=== PATIENT | female | born 1955 | race Caucasian/White ===

== ENCOUNTER 2017-09-30 16:06 | Emergency (ER) | payer SELFPAY ==
[2017-09-30 17:10] VITALS: BP 128/79
--- NOTE | 2017-09-30 23:18 | Emergency Department Report ---
- General Chief Complaint: Upper Respiratory Infection Stated Complaint: NAUSEA,ANGULO,DIARRHEA,CP Time Seen by Provider: 09/30/17 22:30 Source: patient Mode of arrival: Ambulatory Limitations: No Limitations - History of Present Illness Initial Comments: Patient is a 62-year-old female cough nausea vomiting diarrhea body aches 1 week patient has been taking TheraFlu and ibuprofen at home with minimal relief in symptoms symptoms include sinus pressure and sinus headache cough postnasal drip sore throat with nausea vomiting diarrhea intermittent cough worse at night cough with intermittent chest pain with cough only there is no shortness of breath no dizziness no sob, no wheezing, pt has no hx of htn, cad, or asthma MD Complaint: cough, sore throat, rhinorrhea, nasal congestion, sinus pain Onset/Timin -: week(s) Severity: moderate Severity scale (0 -10): 4 Quality: sharp, aching Consistency: intermittent Improves With: NSAID, cough suppressant Worsens With: activity, other (lying down ) Context: sick contacts Associated Symptoms: fever, chills, rhinorrhea, nasal congestion, sore throat, cough, chest pain (chest wall pain right side ), nausea, vomiting, diarrhea, ear pain. denies: dysuria, rash, confusion, right sweats, weight loss, epistaxis, hoarseness Treatments Prior to Arrival: none, Ibuprofen, "cold medicine" - Related Data Previous Rx's Medication Instructions Recorded Last Taken Type Acetaminophen 500 mg PO 1000 PRN #30 tablet 09/30/17 Unknown Rx Amoxicillin/Potassium Clav 1 each PO BID #20 tablet 09/30/17 Unknown Rx [Augmentin 875-125 Tablet] Fluticasone [Flonase] 1 spray NS QDAY #1 bottle 09/30/17 Unknown Rx Guaifenesin/Pseudoephedrne HCl 1 each PO BID PRN #20 tab.er.12h 09/30/17 Unknown Rx [Mucinex D ER 600-60 mg Tablet] Ondansetron [Zofran Odt] 4 mg PO TID PRN #12 tab.rapdis 09/30/17 Unknown Rx Allergies Allergy/AdvReac Type Severity Reaction Status Date / Time No Known Allergies Allergy Unverified 09/30/17 17:06 ED Review of Systems ROS: Stated complaint: NAUSEA,ANGULO,DIARRHEA,CP Other details as noted in HPI Constitutional: chills, fever ENT: ear pain, throat pain, congestion Respiratory: cough. denies: orthopnea, shortness of breath, wheezing Cardiovascular: chest pain (chest wall pain ). denies: palpitations, dyspnea on exertion, orthopnea, edema, syncope, paroxysmal nocturnal dyspnea Endocrine: no symptoms reported Genitourinary: denies: urgency, dysuria, frequency, hematuria, discharge, abnormal menses, dyspareunia Musculoskeletal: denies: back pain, joint swelling, arthralgia, myalgia Skin: denies: rash, lesions Neurological: headache (frontal sinus headache ). denies: numbness, paresthesias, confusion, abnormal gait, vertigo Psychiatric: denies: anxiety, depression Hematological/Lymphatic: denies: easy bleeding, easy bruising ED Past Medical Hx - Past Medical History Previous Medical History?: No - Surgical History Past Surgical History?: No - Social History Smoking Status: Current Every Day Smoker Substance Use Type: None - Medications Home Medications: Home Medications Medication Instructions Recorded Confirmed Last Taken Type Acetaminophen 500 mg PO 1000 PRN #30 tablet 09/30/17 Unknown Rx Amoxicillin/Potassium Clav 1 each PO BID #20 tablet 09/30/17 Unknown Rx [Augmentin 875-125 Tablet] Fluticasone [Flonase] 1 spray NS QDAY #1 bottle 09/30/17 Unknown Rx Guaifenesin/Pseudoephedrne HCl 1 each PO BID PRN #20 tab.er.12h 09/30/17 Unknown Rx [Mucinex D ER 600-60 mg Tablet] Ondansetron [Zofran Odt] 4 mg PO TID PRN #12 tab.rapdis 09/30/17 Unknown Rx ED Physical Exam - General Limitations: No Limitations General appearance: alert, in no apparent distress - Head Head exam: Present: atraumatic, normocephalic - Eye Eye exam: Present: normal appearance, PERRL, EOMI - ENT ENT exam: Present: mucous membranes moist (boggy erythema edema no polyps clear post nasal drip, bilat frontal and maxillary sinuse pain to palpation no swelling mild erythema facial ) - Expanded ENT Exam Expanded Ear exam: Present: normal external inspection TM/Canal exam: Erythema: Right TM, Left TM, Canal Tenderness: Right TM, Left TM Mouth exam: Absent: trismus Throat exam: Positive: tonsillar erythema, tonsillomegaly. Negative: tonsillar exudate, R peritonsillar mass, L peritonsillar mass - Neck Neck exam: Present: normal inspection, full ROM. Absent: tenderness, meningismus, lymphadenopathy, thyromegaly - Respiratory Respiratory exam: Present: chest wall tenderness. Absent: normal lung sounds bilaterally, respiratory distress, wheezes, rales, rhonchi, stridor - Cardiovascular Cardiovascular Exam: Present: regular rate, normal rhythm, normal heart sounds. Absent: systolic murmur, diastolic murmur, rubs, gallop - GI/Abdominal GI/Abdominal exam: Present: soft, normal bowel sounds. Absent: distended, tenderness, guarding, rebound, rigid, mass, bruit, pulsatile mass, hernia - Rectal Rectal exam: Present: deferred - Extremities Exam Extremities exam: Present: normal inspection - Back Exam Back exam: Present: normal inspection - Neurological Exam Neurological exam: Present: alert, oriented X3, CN II-XII intact, normal gait - Psychiatric Psychiatric exam: Present: normal affect, normal mood - Skin Skin exam: Present: warm, dry, intact, normal color ED Course Vital Signs 09/30/17 17:06 Temperature 98.9 F Pulse Rate 98 H Respiratory 18 Rate Blood Pressure 128/79 O2 Sat by Pulse 95 Oximetry ED Medical Decision Making - EKG Data EKG shows normal: sinus rhythm Rate: normal - EKG Data When compared to previous EKG there are: other (no previous ekg) Interpretation: normal EKG - Radiology Data Radiology results: image reviewed no infiltrates no opacities - Medical Decision Making Patient is a 62-year-old female cough nausea vomiting diarrhea body aches 1 week patient has been taking TheraFlu and ibuprofen at home with minimal relief in symptoms symptoms include sinus pressure and sinus headache cough postnasal drip sore throat with nausea vomiting diarrhea intermittent cough worse at night cough with intermittent chest pain with cough only there is no shortness of breath no dizziness no sob, no wheezing, pt has no hx of htn, cad, or asthma patient appears well and nontoxic cough noted nonproductive ENT exam bilateral TM erythema pain with movement bilateral turbinate edema and erythema boggy clear postnasal drip and sinus bilateral frontal and maxillary sinus pain erythema no swelling pharynx moderate erythema no swelling no exudate no lesions uvula midline no stridor lungs clear this time no wheezing no wrist or distress no accessory muscle use chest x-ray normal no infiltrates no opacities. Plan treated for URI sinusitis with Augmentin continue ibuprofen patient has no history of hypertension will use Mucinex D, Flonase viatal signs noted normal [place] heart score is 0 low risk for CO, patient appears well tolerating by mouth hydration will self hydrate at home follow with PCP in 2-3 days patient verbalizes understanding and agreement with discharge plan will be DC'd to home in stable condition at this time. Critical care attestation.: If time is entered above; I have spent that time in minutes in the direct care of this critically ill patient, excluding procedure time. ED Disposition Clinical Impression: URI (upper respiratory infection) Qualifiers: URI type: unspecified viral URI Qualified Code(s): J06.9 - Acute upper respiratory infection, unspecified Sinusitis Qualifiers: Sinusitis location: maxillary Chronicity: acute Recurrence: recurrent Qualified Code(s): J01.01 - Acute recurrent maxillary sinusitis Disposition: DC- TO HOME OR SELFCARE Is pt being admited?: No Does the pt Need Aspirin: No Condition: Good Instructions: Sinusitis (ED), Acute Bacterial Rhinosinusitis (ED), Upper Respiratory Infection (ED) Prescriptions: Acetaminophen 500 mg PO 1000 PRN #30 tablet PRN Reason: pain and fever Amoxicillin/Potassium Clav [Augmentin 875-125 Tablet] 1 each PO BID #20 tablet Fluticasone [Flonase] 1 spray NS QDAY #1 bottle Guaifenesin/Pseudoephedrne HCl [Mucinex D ER 600-60 mg Tablet] 1 each PO BID PRN #20 tab.er.12h PRN Reason: cough congestion Ondansetron [Zofran Odt] 4 mg PO TID PRN #12 tab.rapdis PRN Reason: Nausea And Vomiting Referrals: CRISTELA GALVEZ MD [Staff Physician] - 3-5 Days Forms: Work/School Release Form(ED) Time of Disposition: 23:35
--- NOTE | 2017-09-30 23:29 | XRay Report ---
FINAL REPORT PROCEDURE: XR CHEST ROUTINE 2V TECHNIQUE: PA and lateral chest radiographs were obtained. CPT 03772 HISTORY: cough COMPARISON: No prior studies are available for comparison. FINDINGS: Heart size and pulmonary vasculature appear normal. No evidence of pulmonary edema or pleural effusion. Minimal patchy density present in the left base suggesting a small amount of atelectasis. Subsegmental infiltrate needs clinical exclusion. No acute bone abnormalities are seen. IMPRESSION: Small amount of patchy density left base suggesting a small amount of atelectasis, subsegmental infiltrate needs clinical exclusion. No other abnormality is seen..
== END 2017-09-30 23:15 | disposition home or self-care (01) ==
LOC: ED 16:06
DX: J01.01 Acute recurrent maxillary sinusitis (principal); F17.200 Nicotine dependence, unspecified, uncomplicated
CPT/HCPCS: 71046; 93005; 93010